=== PATIENT | male | born 1940 | race Caucasian/White ===

== ENCOUNTER 2018-03-31 08:17 | Day surgery (SDC) | payer MEDICARE, BC ==
[~2018-03-31 08:17] MED LIST: Lactated Ringers 1,000 ML IV SCH; Lidocaine 1% 4 ML ONE; Lidocaine 1%/Sod Bicarbonate in NS 8.4% 1 ML Syringe IDERM PRN; Propofol 200 MG/20 ML SDV ONE; Sodium Chloride 0.9% 10 ML Syringe FLUSH PRN; fentaNYL 100 MCG/2 ML SDV ONE
--- NOTE | 2018-03-31 08:54 | PCM.PREANE ---
Preanesthetic Assessment - Anesthesia/Transfusion/Family Hx Anesthesia History: Prior Anesthesia Without Reaction Family History of Anesthesia Reaction: No Transfusion History: No Prior Transfusion(s) - Review of Systems General: No Symptoms Pulmonary: No Symptoms Cardiovascular: Dyspnea on Exertion Gastrointestinal: No Symptoms Neurological: Numbness (feet) Other: Reports: Diabetes (91 this am) - Physical Assessment NPO Status Date: 03/30/18 NPO Status Time: 00:00 Pulse: 64 O2 Sat by Pulse Oximetry: 97 Respiratory Rate: 18 Blood Pressure: 143/61 Temperature: 36.9 C Height: 1.75 m Weight: 124 kg ASA Class: 3 Mental Status: Alert & Oriented x3 Airway Class: Mallampati = 1 Dentition: Reports: [place](s), [place] Thyro-Mental Finger Breadths: 3 Mouth Opening Finger Breadths: 3 ROM/Head Extension: Full Lungs: Clear to Auscultation, Normal Respiratory Effort Cardiovascular: Regular Rate, Regular Rhythm - Allergies Allergies/Adverse Reactions: Allergies Allergy/AdvReac Type Severity Reaction Status Date / Time No Known Allergies Allergy Verified 03/30/18 13:57 - Blood Blood Available: No Product(s) Available: None - Anesthesia Plan Pre-Op Medication Ordered: None - Acknowledgements Anesthesia Type Planned: MAC Pt an Appropriate Candidate for the Planned Anesthesia: Yes Alternatives and Risks of Anesthesia Discussed w Pt/Guardian: Yes Pt/Guardian Understands and Agrees with Anesthesia Plan: Yes PreAnesthesia Questionnaire HEENT History: Reports: Impaired Vision Cardiovascular History: Reports: Heart Failure, High Cholesterol, Hypertension Respiratory History: Reports: Sleep Apnea Other Respiratory History: CPAP Gastrointestinal History: Reports: Colon Polyp Genitourinary History: Reports: Prostate Disorder [employer] History: Reports: None Musculoskeletal History: Reports: Arthritis Neurological History: Reports: None Psychiatric History: Reports: None Endocrine/Metabolic History: Reports: Diabetes, Type II, Hypothyroidism Hematologic History: Reports: None Immunologic History: Reports: None Oncologic (Cancer) History: Reports: None Other Dermatologic History: 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, no problems since - Past Surgical History Head Surgeries/Procedures: Reports: None HEENT Surgical History: Reports: Cataract Surgery, Tonsillectomy Cardiovascular Surgical History: Reports: None Respiratory Surgical History: Reports: None GI Surgical History: Reports: None Female Surgical History: Reports: None Male Surgical History: Reports: None Other Male Surgeries/Procedures: prostate surgery Endocrine Surgical History: Reports: None Neurological Surgical History: Reports: None Musculoskeletal Surgical History: Reports: None Oncologic Surgical History: Reports: None Dermatological Surgical History: Reports: None - SUBSTANCE USE Smoking Status *Q: Never Smoker Recreational Drug Use History: No - HOME MEDS Home Medications: Home Meds Insulin Glarg,Human.Rec.Analog [LantUS Solostar] 30 units SQ BID 05/22/15 [ History] Insulin Lispro [HumaLOG] 10 units SQ QID 05/22/15 [History] Levothyroxine Sodium 50 mcg PO DAILY 05/22/15 [History] Losartan [Cozaar] 100 mg PO DAILY 05/22/15 [History] metFORMIN [Glucophage XR] 500 mg PO BID 05/22/15 [History] Furosemide [Lasix] 40 mg PO DAILY #30 tablet 05/26/15 [Rx] Aspirin 325 mg PO DAILY 03/30/18 [History] Multivitamin [Daily Zuri] 1 tab PO DAILY 03/30/18 [History] Tamsulosin HCl 0.4 mg PO DAILY 03/30/18 [History] amLODIPine Besylate [Amlodipine Besylate] 10 mg PO DAILY 03/30/18 [History] atorvaSTATin Calcium [Atorvastatin Calcium] 10 mg PO DAILY 03/30/18 [History] - CURRENT (IN HOUSE) MEDS Current Meds: Current Medications Lactated Ringer's (Ringers, Lactated) 1,000 mls @ 125 mls/hr IV ASDIRECTED NEPTALI Stop: 03/31/18 23:00 Lidocaine/Sodium Bicarbonate (Buffered Lidocaine 1% In Ns 8.4%) 0.25 ml IDERM ONETIME PRN PRN Reason: Prior to IV Start Stop: 03/31/18 18:00 Sodium Chloride (Saline Flush) 10 ml FLUSH ASDIRECTED PRN PRN Reason: Keep Vein Open Stop: 03/31/18 18:00 Discontinued Medications Fentanyl (Sublimaze) Confirm Administered Dose 100 mcg .ROUTE .STK-MED ONE Stop: 03/31/18 07:44 Lidocaine HCl (Xylocaine-Mpf 1%) Confirm Administered Dose 4 mls @ as directed .ROUTE .STK-MED ONE Stop: 03/31/18 07:44 Propofol (Diprivan 20 Ml) Confirm Administered Dose 200 mg .ROUTE .STK-MED ONE Stop: 03/31/18 07:43
[2018-03-31] MEDS ORDERED: Propofol 200 MG/20 ML SDV ONE (10:35)
--- NOTE | 2018-03-31 10:53 | PCM48HPAN ---
Post Anesthesia Note - EVALUATION WITHIN 48HRS OF ANESTHETIC Vital Signs in Normal Range: Yes Patient Participated in Evaluation: Yes Respiratory Function Stable: Yes Airway Patent: Yes Cardiovascular Function Stable: Yes Hydration Status Stable: Yes Pain Control Satisfactory: Yes Nausea and Vomiting Control Satisfactory: Yes Mental Status Recovered: Yes Pulse Rate: 58 SaO2: 92 Resp Rate: 14 Temperature: 36.3 C Blood Pressure: 115/58
--- NOTE | 2018-03-31 10:55 | PCM.OPNOTE ---
- General Post-Op/Procedure Note Date of Surgery/Procedure: 03/31/18 Operative Procedure(s): colonoscopy to cecum with polypectomy times 3 Pre Op Diagnosis: screening colonosocopy Post-Op Diagnosis: Same Anesthesia Technique: MAC Primary Surgeon: Tyrese Lopez EBL in mLs: 0 Complications: None Condition: Good
[2018-03-31 11:31] VITALS: BP 129/66
--- NOTE | 2018-04-01 07:07 | OR ---
DATE OF OPERATION: 03/31/2018 SURGEON: Tyrese Lopez MD PREOPERATIVE DIAGNOSIS: Screening colonoscopy. POSTOPERATIVE DIAGNOSIS: Screening colonoscopy. FINDINGS: Colonoscopy to cecum with polypectomy x3, 1 in the ascending colon, 1 in the transverse colon, which were both diminutive polyps, and the 3rd was in the descending colon, which was a sessile polyp close to a centimeter, which was removed by a guillotine technique. Bleeding at the site was controlled with clips. There was also some mild sigmoid diverticulosis. There were no angiodysplasias, large tumor masses, ulcerations, or notable hemorrhoids. OPERATION PERFORMED: Colonoscopy to cecum with polypectomy x3. ANESTHESIA: IV sedation. DESCRIPTION OF PROCEDURE: The patient was taken to the endoscopy room, placed in the supine position, connected to monitoring equipment, given IV sedation, placed in the left lateral position. Perianal area was inspected, it was normal. Rectal exam showed good sphincter tone. A video Olympus colonoscope was then introduced into the rectum and threaded up without problem to the cecum. Cecal anatomy was clearly seen showing the appendicular orifice. Prep was excellent. [place] Cleansing Score grade A and the scope was slowly withdrawn showing the cecum, ascending colon, transverse colon, descending colon, sigmoid colon, and rectum. A diminutive polyp in the ascending colon was removed by cold biopsy forceps and sent to pathology. A second polyp in the transverse colon, which was diminutive, was removed in the same fashion. The polyp at about 60 cm was sessile and was used by cautery snare with a guillotine technique and retrieved and sent to pathology, is close to a centimeter. Some bleeding at the base was then controlled with clips. The rest of the study was unremarkable. The patient tolerated the procedure, sent to recovery room in a stable condition. Specimen sent to pathology in a labeled container. The patient will be followed up in the clinic. ESTIMATED BLOOD LOSS: MMODAL /[id number]
== END 2018-03-31 11:37 | disposition home or self-care (01) ==
LOC: JD.SDS 08:17
PROVIDERS: ATTEND Surgery
DX: Z12.11 Encounter for screening for malignant neoplasm of colon (principal); D12.2 Benign neoplasm of ascending colon; D12.3 Benign neoplasm of transverse colon; D12.4 Benign neoplasm of descending colon; K57.30 Diverticulosis of large intestine without perforation or abscess without bleeding; M19.90 Unspecified osteoarthritis, unspecified site; I11.0 Hypertensive heart disease with heart failure; I50.9 Heart failure, unspecified; E11.9 Type 2 diabetes mellitus without complications; E78.5 Hyperlipidemia, unspecified; E07.9 Disorder of thyroid, unspecified; G47.30 Sleep apnea, unspecified; Z99.89 Dependence on other enabling machines and devices; Z79.4 Long term (current) use of insulin; Z79.82 Long term (current) use of aspirin; Z79.899 Other long term (current) drug therapy
CPT/HCPCS: 45380; 45385; J2704; J3010; J7120; 00811; J2001